=== PATIENT | male | born 1990 | race Caucasian/White ===

== ENCOUNTER 2020-11-02 20:45 | Emergency (ER) | payer OTHER ==
[2020-11-02] MEDS ORDERED: IBUPROFEN 600 MG TAB PO ONE (21:22)
[2020-11-02] MEDS ORDERED: ACETAMINOPHEN 325 MG TAB PO ONE (21:22)
--- NOTE | 2020-11-02 22:11 | XRay Report ---
LUMBAR SPINE 3 VIEWS INDICATION: Pain - injury COMPARISON: None. FINDINGS: No acute, displaced fracture is seen. Alignment is within normal limits. Disc space height is maintained. No significant degenerative changes. CONCLUSION: 1. No acute findings. Signer Name: Randy Lawson MD Signed: 11/02/2020 10:07 PM Workstation Name: [id number]
--- NOTE | 2020-11-02 22:27 | Cat Scan Report ---
Examination: CT of the cervical spine without contrast Clinical information: Trauma. Neck pain. Comparison: No relevant prior studies are available for comparison. Technical: Multiple axial CT images of the cervical spine were obtained without intravenous contrast. Sagittal and coronal reformats were obtained. All CTs at this facility utilize dose reduction techn iques including automated exposure control, iterative reconstruction and weight based dosing when brando ropriate to reduce patient radiation dose to as low as reasonable achievable. Findings: There is normal alignment of the cervical vertebral bodies. Vertebral body height and intervertebral disc spaces appear well maintained. No significant bony degenerative changes are noted. The bilateral lung apices are clear. Limited imaging of associated soft tissues demonstrates no focal abnormality. Impression: 1. No CT evidence of acute bony abnormality of the cervical spine. Signer Name: Natasha Cid MD Signed: 11/02/2020 10:22 PM Workstation Name: [id number]
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
[2020-11-03 07:00] VITALS: BP 128/80
== END 2020-11-02 23:31 | disposition home or self-care (01) ==
LOC: ED 20:45
DX: S39.012A Strain of muscle, fascia and tendon of lower back, initial encounter (principal); M62.838 Other muscle spasm; M62.830 Muscle spasm of back; Z79.899 Other long term (current) drug therapy; V49.49XA Driver injured in collision with other motor vehicles in traffic accident, initial encounter; Y92.410 Unspecified street and highway as the place of occurrence of the external cause; Y93.89 Activity, other specified; Y99.8 Other external cause status
CPT/HCPCS: 72100; 72125